=== PATIENT | female | born 1960 | race Caucasian/White ===

== ENCOUNTER 2019-02-06 15:03 | Emergency (ER) | payer OTHER ==
[~2019-02-06] VITALS: Ht 152.4 cm; Wt 86.0 kg
[~2019-02-06 15:03] MED LIST: ASPI-716 PO; DICL75TA2 PO; FER325 PO; GLIP5TAB PO; LANT3I SC; LEVOTHYROXINE PO; LISI10TA2 PO; METF100010 PO
[2019-02-06 15:13] VITALS: Ht 152.4 cm; Wt 86.0 kg
--- NOTE | 2019-02-06 17:26 | ERD ---
ER Documentation Chief Complaint Chief Complaint MARTINEZ, sorethroat & body aches x 1 day HPI The patient is a 58-year-old female, presenting with cough, nasal congestion, sore throat, constipation, general body pain, subjective fever for 1 day, denies neck pain, chest pain, dyspnea, abdominal pain, vomiting, dysuria. She does not smoke nor drink Past medical history: Hypothyroidism, diabetes mellitus, hypertension Past surgical history: 3 , appendectomy, ventral herniorrhaphy ROS All systems reviewed and are negative except as per history of present illness. Medications Home Meds Active Scripts Dextromethorphan Hb-Promethazine Hcl* (Promethazine DM* Syrup) 473 Ml Syrup, 10 ML PO Q6 PRN for COUGH, #120 ML Prov:STEPHEN MOORE MD 02/06/19 Ibuprofen* (Motrin*) 600 Mg Tab, 600 MG PO Q6H PRN for PAIN AND OR ELEVATED TEMP, #20 TAB Prov:STEPHEN MOORE MD 02/06/19 Reported Medications Tramadol Hcl* (Ultram*) 50 Mg Tablet, 50 MG PO BID PRN for PAIN, TAB 02/06/19 Amlodipine Besylate* (Amlodipine Besylate*) 10 Mg Tablet, 10 MG PO DAILY, #30 TAB 02/06/19 Lisinopril* (Lisinopril*) 20 Mg Tablet, 20 MG PO DAILY, #30 TAB 02/06/19 Omeprazole* (Omeprazole*) 20 Mg Capsule.dr, 20 MG PO DAILY, #30 CAP 02/06/19 Pravastatin Sodium* (Pravastatin Sodium*) 80 Mg Tablet, 80 MG PO HS, TAB 02/06/19 Levothyroxine Sodium* (Levothyroxine Sodium*) 150 Mcg Tablet, 150 MCG PO BEFORE BREAKFAST, #30 TAB 02/06/19 Losartan Potassium* (Losartan Potassium*) 100 Mg Tablet, 100 MG PO DAILY, TAB 02/06/19 Gabapentin* (Gabapentin*) 300 Mg Capsule, 300 MG PO BID, #60 CAP 02/06/19 Aspirin* (Aspirin* EC) 81 Mg Tablet.dr, 81 MG PO DAILY, TAB 02/06/19 Hydrochlorothiazide* (Hydrochlorothiazide*) 25 Mg Tab, 25 MG PO DAILY, #30 TAB 02/06/19 Insulin Glargine,Hum.rec.anlog (Basaglar Kwikpen U-100) 100 Unit/1 Ml Insuln.pen, 70 UNIT SC QHS, EA 02/06/19 Cholecalciferol (Vitamin D3) (Vitamin D-3) 2,000 Unit Tablet, 2000 UNIT PO DAILY, TAB 02/06/19 Discontinued Reported Medications [Levothyroxine] No Conflict Check, PO DAILY 01/02/14 Insulin Glargine* (Lantus*) 100 Unit/Ml Soln, 40 UNIT SC DAILY, EA 01/02/14 Diclofenac Sodium* (Diclofenac Sodium*) 75 Mg Tablet.dr, 75 MG PO BID, TAB 01/02/14 Aspirin* (Ecotrin*) 81 Mg Tablet.dr, 81 MG PO DAILY, TAB 01/02/14 Lisinopril* (Lisinopril*) 10 Mg Tablet, 10 MG PO DAILY 01/02/14 Ferrous Sulfate* (Ferrous Sulfate*) 325 Mg Tabec, 325 MG PO TID 01/02/14 Glipizide XL* (Glucotrol XL*) 5 Mg Tab.er.24, 10 MG PO BID 01/02/14 Metformin Hcl* (Metformin Hcl*) 1,000 Mg Tablet, 1000 MG PO BID 01/02/14 Allergies Allergies: Coded Allergies: latex (Verified Allergy, Unknown, 02/06/19) PMhx/Soc History of Surgery: Yes (APPY;CSECTION X3;HERNIA REPAIR;LT KNEE OPA) Anesthesia Reaction: No Hx Neurological Disorder: No Hx Respiratory Disorders: No Hx Cardiac Disorders: Yes (HTN) Hx Psychiatric Problems: No Hx Miscellaneous Medical Probl: No Hx Alcohol Use: No Hx Substance Use: No Hx Tobacco Use: No Physical Exam Vitals Vital Signs Date Temp Pulse Resp B/P (MAP) Pulse Ox O2 O2 Flow FiO2 Time Delivery Rate 02/06/19 100.3 72 20 115/57 96 Room Air 20:00 (76) 02/06/19 101.2 73 20 108/63 95 Room Air 19:30 (78) 02/06/19 102.1 82 14 130/49 95 Room Air 18:15 (76) 02/06/19 101.9 98 20 118/59 96 15:13 (78) Physical Exam Const: No acute distress. Head: Atraumatic. Eyes: Normal Conjunctiva. ENT: Normal External Ears, Nose and Mouth. Bilateral tympanic membranes and oropharynx are within normal limit Neck: Full range of motion. No meningismus. Resp: Clear to auscultation bilaterally. Cardio: Regular tachycardic Abd: Soft, non distended, normal bowel sounds, non tender. Skin: No petechiae or rashes. Back: No midline or flank tenderness. Ext: No cyanosis, or edema. Neur: Awake and alert. No focal deficit Psych: Normal Mood and Affect. Result Diagram: 02/06/19 1751 02/06/19 1751 Results 24 hrs Laboratory Tests Test 02/06/19 15:25 02/06/19 17:46 02/06/19 17:51 02/06/19 18:00 Bedside Glucose 187 mg/dL POC Venous 1.3 mmol/L Lactate White Blood Count 11.9 10^3/ul Red Blood Count 4.76 10^6/ul Hemoglobin 13.2 g/dl Hematocrit 40.1 % Mean Corpuscular 84.2 fl Volume Mean Corpuscular 27.7 pg Hemoglobin Mean Corpuscular 32.9 g/dl Hemoglobin Concen t Red Cell 13.6 % Distribution Width Platelet Count 297 10^3/UL Mean Platelet 10.7 fl Volume Immature 0.500 % Granulocytes % Neutrophils % 82.9 % Lymphocytes % 10.1 % Monocytes % 6.1 % Eosinophils % 0.0 % Basophils % 0.4 % Nucleated Red 0.0 /100WBC Blood Cells % Immature 0.060 10^3/ul Granulocytes # Neutrophils # 9.9 10^3/ul Lymphocytes # 1.2 10^3/ul Monocytes # 0.7 10^3/ul Eosinophils # 0.0 10^3/ul Basophils # 0.1 10^3/ul Nucleated Red 0.0 10^3/ul Blood Cells # Prothrombin Time 12.5 Sec Prothrombin Time 1.0 Ratio INR International 0.92 Normalized Ratio Activated 27.7 Sec Partial Thrombopl ast Time Sodium Level 133 mmol/L Potassium Level 3.8 mmol/L Chloride Level 95 mmol/L Carbon Dioxide 26 mmol/L Level Anion Gap 12 Blood Urea 21 mg/dl Nitrogen Creatinine 0.84 mg/dl Est Glomerular > 60 mL/min Filtrat Rate mL/min Glucose Level 221 mg/dl Calcium Level 9.6 mg/dl Total Bilirubin 0.7 mg/dl Direct Bilirubin 0.00 mg/dl Indirect 0.7 mg/dl Bilirubin Aspartate Amino 20 IU/L Transf (AST/SGOT) Alanine 41 IU/L Aminotransferase (ALT/SGPT) Alkaline 121 IU/L Phosphatase Troponin I < 0.012 ng/ml Total Protein 7.6 g/dl Albumin 4.0 g/dl Globulin 3.60 g/dl Albumin/Globulin 1.11 Ratio Urine Color YELLOW Urine Clarity CLEAR Urine pH 8.0 Urine Specific 1.025 [place] Urine Ketones NEGATIVE mg/dL Urine Nitrite NEGATIVE mg/dL Urine Bilirubin NEGATIVE mg/dL Urine NEGATIVE mg/dL Urobilinogen Urine Leukocyte NEGATIVE Roxy/ul Esterase Urine Microscopic 2 /HPF RBC Urine Microscopic 0 /HPF WBC Urine Hemoglobin NEGATIVE mg/dL Urine Glucose NEGATIVE mg/dL Urine Total 1+ mg/dl Protein Test 02/06/19 18:06 02/06/19 19:38 Bedside Urine pH 8.5 (LAB) Bedside Urine 2+ Protein (LAB) Bedside Urine Negative Glucose (UA) Bedside Urine Trace Ketones (LAB) Bedside Urine Negative Blood Bedside Urine Negative Nitrite (LAB) Bedside Urine Negative Leukocyte Esteras e (L Lactic Acid Level 0.7 mmol/L Current Medications Medications Dose Sig/Evans Start Time Status Last (Trade) Ordered Route PRN Stop Time Admin Dose Reason Admin Sodium 1,370 ml BOLUS OVER 2 02/06/19 DC 02/06/19 Chloride HOURS STAT 17:35 18:22 (NS) IV* 02/06/19 17:36 650 mg ONCE ONCE 02/06/19 DC 02/06/19 Acetaminophen PO 18:00 18:22 (Tylenol 02/06/19 18:01 Tab) Ibuprofen 600 mg ONCE ONCE 02/06/19 DC 02/06/19 (Motrin) PO 18:00 18:22 02/06/19 18:01 Procedures/[place] [id number] Radiology Main Line: [phone] DIAGNOSTIC IMAGING REPORT Patient: MADISON WING : 1960 Age: 58 Sex: F MR #: [id number] DOS: 02/06/19 1734 Ordering MD: STEPHEN MOORE MD Location: E/R Room/Bed: PROCEDURE: XR Chest 1 View CLINICAL INDICATION: Possible Sepsis TECHNIQUE: Frontal view of the chest was obtained. COMPARISON: None FINDINGS: Heart normal in size. Aorta is calcified. Lungs are clear. No pleural effusion or pneumothorax. No acute osseous abnormality. IMPRESSION: No acute pulmonary disease. Aortic atherosclerosis. RPTAT: PP Alexis Marie Physician Date Time Electronically viewed and signed by Alexis Marie Physician on 02/06/2019 18:42 ME/ CC: STEPHEN MOORE MD [phone] EKG: Read by emergency physician Rate/Rhythm: Normal Sinus Rhythm 86 beats/min QRS, ST, T-waves: No ST elevation, no T inversion, low voltage QRS, nonspecific ST abnormality Impression: Abnormal EKG MEDICAL MAKING DECISION: The patient is a 58-year-old female, presenting with acute viral syndrome. She was treated with ideal body weight IV fluid for clinical dehydration, Tylenol and Motrin for fever with good response, is stable for present follow-up The differential diagnoses considered include but are not limited to influenza, viral syndrome, cystitis, pneumonia Departure Diagnosis: Primary Impression: Viral syndrome Condition: Good Comments She was discharged with Motrin and Phenergan DM I discussed the findings with the patient. I advised the patient to follow-up with the primary physician in about 2-3 days, sooner if needed and return if any concern. Disclaimer: Inadvertent spelling and grammatical errors are likely due to EHR/dictation software use and do not reflect on the overall quality of patient care. Also, please note that the electronic time recorded on this note does not necessarily reflect the actual time of the patient encounter. STEPHEN MOORE MD Feb 06, 2019 17:26
[2019-02-06] MEDS ORDERED: SODIUM CHLORIDE 0.9% 1L BAG IV* STA (17:35)
[2019-02-06] MEDS ORDERED: CHOL200056 PO (17:57)
[2019-02-06] MEDS ORDERED: INSU100I33 SC (17:58)
[2019-02-06] MEDS ORDERED: GABA300C16 PO (17:58)
[2019-02-06] MEDS ORDERED: HYDR25TA6 PO (17:58)
[2019-02-06] MEDS ORDERED: ASPI-817 PO (17:58)
[2019-02-06] MEDS ORDERED: PRAV80TA27 PO (17:59)
[2019-02-06] MEDS ORDERED: LOSA100T15 PO (17:59)
[2019-02-06] MEDS ORDERED: LEVO150T7 PO (17:59)
[2019-02-06] MEDS ORDERED: IBUPROFEN 600 MG TAB PO ONE (18:00)
[2019-02-06] MEDS ORDERED: LISI-471 PO (18:00)
[2019-02-06] MEDS ORDERED: ACETAMINOPHEN 325 MG TAB PO ONE (18:00)
[2019-02-06] MEDS ORDERED: OMEP20CA16 PO (18:00)
[2019-02-06] MEDS ORDERED: AMLO-147 PO (18:00)
[2019-02-06] MEDS ORDERED: TRAM50TA PO (18:01)
[2019-02-06] MEDS ORDERED: IBUP-1542 PO (19:49)
[2019-02-06] MEDS ORDERED: D-ME473S2 PO (19:50)
[2019-02-06 20:00] VITALS: BP 115/57; PULSE 72; RESP 20
== END 2019-02-06 20:00 | disposition home or self-care (01) ==
LOC: E/R 15:03
DX: B34.9 Viral infection, unspecified (principal); E11.9 Type 2 diabetes mellitus without complications; I10 Essential (primary) hypertension; E03.9 Hypothyroidism, unspecified; Z79.01 Long term (current) use of anticoagulants; Z79.4 Long term (current) use of insulin
CPT/HCPCS: 71045; 80053; 81001; 82962; 83605; 84484; 85025; 85610; 85730; 87040; 87086; 87880; 93005; J7030; Z7502; Z7610; 81003